=== PATIENT | male | born 1935 | race Caucasian/White ===

== ENCOUNTER 2016-04-07 11:01 | Emergency (ER) | payer MEDICARE ==
[2016-04-07 11:10] VITALS: BMI 27.2
[2016-04-07 11:11] VITALS: TEMP 98.1
[2016-04-07 11:21] LABS: AUTOMATED BASOPHIL 0.6 % (0-2); AUTOMATED MONOCYTE 8.1 % (3-10); AUTOMATED NEUTROPHIL 69.3 % (45-76); MPV 8.2 fL (7.4-10.4)
[2016-04-07 11:38] LABS: BLOOD UREA NITROGEN 16 MG/DL (9-20); CALCIUM 8.7 MG/DL (8.4-10.2); CALCULATED OSMOLALITY 267 MOs/Kg (270-290); CHLORIDE 105 mEq/L (98-107); GLUCOSE 91 MG/DL (70-99); SODIUM LEVEL 138 mEq/L (137-146); TOTAL PROTEIN 6.6 G/DL (6.3-8.2)
[2016-04-07 14:08] LABS: LEUKOCYTES/URINE NEG (NEGATIVE); NITRITE/URINE NEG (NEGATIVE); RBC/URINE 0-2 (0-2); URINE OCCULT BLOOD NEG (NEG/TRACE)
[2016-04-07] MEDS ORDERED: NS 1,000 ML IV ONE ×2 (15:03→15:18)
--- NOTE | 2016-04-07 15:08 | EDPRACDOC ---
- General Information Chief Complaint: Generalized Weakness Stated Complaint: GENERAL WEAKNESS Time Seen by Provider: 04/07/16 11:29 Information Source: Patient Mode Of Arrival: Ambulance Home Medications: Home Medications Aspirin [Aspirin EC] 81 mg PO QAM 12/21/13 Carbidopa/Levodopa [Carbidopa-Levodopa 25-100 Tab] 1 tab PO .DAILY@1530 Carbidopa/Levodopa [Carbidopa-Levodopa 25-100 Tab] 2 tab PO .TID W/MEALS Flecainide Acetate [Tambocor] 50 mg PO .NOON & QHS 12/21/13 Galantamine HBr [Razadyne ER] 24 mg PO QAM 12/21/13 Multivitamin [Daily Vitamin] 1 tab PO DAILY 12/21/13 Melatonin/Pyridoxine [Melatonin 3 mg Tablet] 3 mg PO .SUPPER & 2000 10/27/15 Memantine HCl [Namenda] 10 mg PO BID 10/27/15 Mirtazapine 7.5 mg PO Q48H 10/27/15 Amoxicillin/Clavulanate Potas. [Augmentin] 875 mg PO Q12H 04/07/16 Cholecalciferol (Vitamin D3) [Vitamin D3] 1,000 unit PO .DAILY@NOON 04/07/16 Cyanocobalamin (Vitamin B-12) [B-12] 500 mcg PO QAM 04/07/16 Fludrocortisone Acetate [Florinef] 0.1 mg PO QAM 04/07/16 Kefir Probiotic Drink 237 ml PO QA 04/07/16 Probiotic Blend [Erinn Q] 1 tab PO HS 04/07/16 Allergies/Adverse Reactions: Allergies Allergy/AdvReac Type Severity Reaction Status Date / Time No Known Allergies Allergy Verified 04/07/16 11:37 - History of Present Illness Onset: WEAKS Exact Onset of Symptoms: Unknown HPI: INSIDIOUS ONSET OF WEAKNESS AND MUSCLE INCOORDINATION (HISTORY OF PARKINSONISM). THIS HAS PROGRESSIVELY BEEN MORE SEVERE OVER THE PAST 2-3 DAYS. PATIENT HAS BEEN USING THE BEDSIDE COMMODE FOR THE PAST WEEKS, BUT NOW IS HAVING TROUBLE GETTING UP TO USE THE BEDSIDE COMMODE WITHOUT SIGNIFICANT ASSISTANCE FROM HIS . PATIENT HAS HAD A SERIES OF MINOR MEDICAL PROBLEMS OVER THE PAST MONTHS. INCLUDING INCREASE LOWER BACK PAIN STATUS POST SPINAL INJECTION 3 WEEKS AGO, RECENT UPPER RESPIRATORY INFECTION TREATED WITH AUGMENTIN THIS STARTED APPROXIMATELY 1 WEEK AGO. THIS HAS PROGRESSED TO A NONPRODUCTIVE COUGH. HIS ALSO HAD A HEADACHE FOR APPROXIMATELY 2-3 DAYS RATE IS 6/10 GENERALIZED SLOW ONSET NO ALLEVIATING OR AGGRAVATING FACTORS THIS SOMEWHAT IMPROVED NOW.. HE HAS HAD A DECREASE IN P.O. INTAKE FOR THE PAST SEVERAL DAYS WELL. REPORTS THAT HE CM LINES ON THE WALL, AND THIS HAS BEEN ASSOCIATED WITH DEHYDRATION IN THE PAST. ED Past Medical History - Patient Medical History Neurological History: Reports: Dementia (Mild cognitive impairment for which he takes Namenda), Parkinson's Cardiac History: Reports: Hypertension, Cardiac Catheterization, Pacemaker () Respiratory History: Reports: Pulmonary Embolism (2006 pulmonary embolus) Musculoskeletal History: Reports: Arthritis Psychological History: Denies: Depression, Substance Use Disorder Systemic History: Reports: Cancer (skin) Surgical History: Reports: Cardiac Catheterization - Family Medical History Reports: Cancer, Cardiac Disorders. Denies: Hypertension, Diabetes, Stroke - Social Medical History Smoking Status: Never smoker Social History: Denies: Substance Use Disorder ETOH: None Substance Abuse: None Lives With: Spouse Lives In: Home EDM Review of Systems - Review of Systems ROS Negative Except as Marked: Yes All systems reviewed and were negative except as marked - Physical Exam Constitutional: Alert (Awake), No apparent distress Oriented to: Time, Person, Place Last recorded Vital Signs: Last Vital Signs Temp 98.1 F 04/07/16 11:04 Pulse 61 04/07/16 14:59 Resp 18 04/07/16 14:59 BP 127/79 04/07/16 14:59 Pulse Ox 94 04/07/16 14:59 Oxygen Pulse Oxygen Saturation 94 O2 Device Room Air Oxygen Flow Rate Fraction of Inspired Oxygen ( FIO2) - HEENT Head: Normal ( normocephalic) Eye Exam: Normal (PERRL, EOMI, Sclera white) Oropharynx: Normal (Pharynx:Moist without exudate,Gums-no swelling) Nose: No Symptoms Reported (septum midline) Neck: Normal (FROM, trachea at midline). negative: Edema, Limited ROM, Lymphadenopathy, Meningeal Signs - Respiratory/Cardiovascular Respiratory: Normal - CTA (BBS clear to auscultation without adventitious sounds ). negative: Accessory Muscle Use, Tachypnea Cardiovascular: Normal (RRR without murmur, gallop or rub) - GI Auscultation: Normal (NABS) Palpation: Normal (Soft,No rebound or guarding, non distended) Tenderness: Non tender Lakhani's Sign: Negative - Musculoskeletal Back: Normal (Non-Tender) Extremities: Normal (Normal tone, Pulses 2+ No cyanosis or edema, FROM) - Integumentary Skin: Normal, Warm, Dry Lymphatics: Normal (no adenopathy) - Neurologic Memory Impaired: Normal Motor Function: Normal (Normal tone, Pulses 2+ No cyanosis or edema, FROM) Cranial Nerve: Normal (CN II-X11 intact sensation, strength 5/5) Cerebellar: Other (GROSSLY INTACT) Mood Description: Normal, Appropriate Thought: Coherent Perception: Normal NIH Stroke Scale Re-evaluation 1 Level of Consciousness: Alert LOC- Question: Answers Both Correctly LOC Commands: Both Task Correctly Best Gaze: Normal Visual: No Visual Loss Facial Palsy: Normal Movement Motor Arm LEFT: No Drift Motor Arm RIGHT: No Drift Motor Leg LEFT: No Drift Motor Leg RIGHT: No Drift Limb Ataxia: Absent Sensory: Normal Best Language: No Aphasia Dysarthria: Normal Extinction and Inattention: No Abnormality (Neglect) Score: 0out of42 - Results 04/07/16 11:08 04/07/16 11:08 WBC 4.8 xk/uL (3.8-10.8) 04/07/16 11:08 RBC 4.20 xM/uL (4.70-6.10) L 04/07/16 11:08 Hgb 12.6 g/dL (14.0-18.0) L 04/07/16 11:08 Hct 37.0 % (42-52) L 04/07/16 11:08 MCV 88 fL (80-94) 04/07/16 11:08 MCH 29.9 pg (27-32) 04/07/16 11:08 MCHC 34.0 g/dl (33-36) 04/07/16 11:08 RDW 13.6 % (11.5-14.5) 04/07/16 11:08 Plt Count 149 xk/uL (130-400) 04/07/16 11:08 MPV 8.2 fL (7.4-10.4) 04/07/16 11:08 Neut % (Auto) 69.3 % (45-76) 04/07/16 11:08 Lymph % (Auto) 20.0 % (17-44) 04/07/16 11:08 Duchesne % (Auto) 8.1 % (3-10) 04/07/16 11:08 Eos % (Auto) 2.0 % (0-5) 04/07/16 11:08 Baso % (Auto) 0.6 % (0-2) 04/07/16 11:08 Absolute Neuts (auto) 3.31 xk/uL (1.7-8.2) 04/07/16 11:08 Absolute Lymphs (auto) 0.96 xk/uL (0.65-4.75) 04/07/16 11:08 Sodium 138 mEq/L (137-146) 04/07/16 11:08 Potassium 4.4 mEq/L (3.5-5.1) 04/07/16 11:08 Chloride 105 mEq/L (98-107) 04/07/16 11:08 Carbon Dioxide 25 mMOL/L (22-33) 04/07/16 11:08 Anion Gap 12 mEq/L (8-16) 04/07/16 11:08 BUN 16 MG/DL (9-20) 04/07/16 11:08 Creatinine 0.90 MG/DL (0.66-1.25) 04/07/16 11:08 Estimated GFR (MDRD) > 60 mL/min (>=60) 04/07/16 11:08 Glucose 91 MG/DL (70-99) 04/07/16 11:08 Calculated Osmolality 267 MOs/Kg (270-290) L 04/07/16 11:08 Calcium 8.7 MG/DL (8.4-10.2) 04/07/16 11:08 Corrected Calcium 9.0 MG/DL (8.4-10.2) 04/07/16 11:08 Total Bilirubin 0.8 MG/DL (0.2-1.3) 04/07/16 11:08 AST 63 IU/L (17-59) H 04/07/16 11:08 ALT 37 IU/L (21-72) 04/07/16 11:08 Alkaline Phosphatase 67 IU/L (50-160) 04/07/16 11:08 Troponin I < 0.01 ng/mL (<.04) 04/07/16 11:08 Total Protein 6.6 G/DL (6.3-8.2) 04/07/16 11:08 Albumin 3.7 G/DL (3.5-5.0) 04/07/16 11:08 Urine Color Yellow 04/07/16 13:54 Urine Clarity Clear 04/07/16 13:54 Urine pH 6.0 (5.0-8.0) 04/07/16 13:54 Ur Specific Sutton 1.035 (1.003-1.035) 04/07/16 13:54 Urine Protein Neg (NEG/TRACE) 04/07/16 13:54 Urine Glucose (UA) Neg (NEGATIVE) 04/07/16 13:54 Urine Ketones Neg (NEGATIVE) 04/07/16 13:54 Urine Occult Blood Neg (NEG/TRACE) 04/07/16 13:54 Urine Nitrite Neg (NEGATIVE) 04/07/16 13:54 Urine Bilirubin Neg (NEGATIVE) 04/07/16 13:54 Urine Urobilinogen 0.2 MG/DL (0-1) 04/07/16 13:54 Ur Leukocyte Esterase Neg (NEGATIVE) 04/07/16 13:54 Urine RBC 0-2 (0-2) 04/07/16 13:54 Urine WBC 2-5 (0-2) H 04/07/16 13:54 Ur Epithelial Cells Occ 04/07/16 13:54 Urine Mucus Occ (NEG/OCC) 04/07/16 13:54 Lab Results 04/07/16 04/07/16 04/07/16 13:54 11:08 11:08 WBC 4.8 RBC 4.20 L Hgb 12.6 L Hct 37.0 L MCV 88 MCH 29.9 MCHC 34.0 RDW 13.6 Plt Count 149 MPV 8.2 Neut % (Auto) 69.3 Lymph % (Auto) 20.0 Duchesne % (Auto) 8.1 Eos % (Auto) 2.0 Baso % (Auto) 0.6 Absolute Neuts (auto) 3.31 Absolute Lymphs (auto) 0.96 Sodium Potassium Chloride Carbon Dioxide Anion Gap BUN Creatinine Estimated GFR (MDRD) Glucose Calculated Osmolality Calcium Corrected Calcium Total Bilirubin AST ALT Alkaline Phosphatase Troponin I < 0.01 Total Protein Albumin Urine Color Yellow Urine Clarity Clear Urine pH 6.0 Ur Specific Sutton 1.035 Urine Protein Neg Urine Glucose (UA) Neg Urine Ketones Neg Urine Occult Blood Neg Urine Nitrite Neg Urine Bilirubin Neg Urine Urobilinogen 0.2 Ur Leukocyte Esterase Neg Urine RBC 0-2 Urine WBC 2-5 H Ur Epithelial Cells Occ Urine Mucus Occ 04/07/16 11:08 WBC RBC Hgb Hct MCV MCH MCHC RDW Plt Count MPV Neut % (Auto) Lymph % (Auto) Duchesne % (Auto) Eos % (Auto) Baso % (Auto) Absolute Neuts (auto) Absolute Lymphs (auto) Sodium 138 Potassium 4.4 Chloride 105 Carbon Dioxide 25 Anion Gap 12 BUN 16 Creatinine 0.90 Estimated GFR (MDRD) > 60 Glucose 91 Calculated Osmolality 267 L Calcium 8.7 Corrected Calcium 9.0 Total Bilirubin 0.8 AST 63 H ALT 37 Alkaline Phosphatase 67 Troponin I Total Protein 6.6 Albumin 3.7 Urine Color Urine Clarity Urine pH Ur Specific Sutton Urine Protein Urine Glucose (UA) Urine Ketones Urine Occult Blood Urine Nitrite Urine Bilirubin Urine Urobilinogen Ur Leukocyte Esterase Urine RBC Urine WBC Ur Epithelial Cells Urine Mucus - EKG EKG #1 EKG Time: 11:10 -: Yes EKG interpreted by me Rate: bpm: 71 Roberta: Normal Rhythm: NSR, Paced Block: None Hypertrophy: None ST: Nonsp Comparison: 11/01/15 (NO SIGNIF CHANGE) EKG #2 EKG Time: 16:12 -: Yes EKG interpreted by me Rate: bpm: 79 Roberta: Normal Rhythm: Paced Block: None Hypertrophy: None ST: Nonsp - Diagnostic Imaging Head Image interpreted by: , Radiologist Patient Name: GALI HANNA III Courtesy Copy to: Diagnostic Imaging Report [facility] [address] [place] [address] [phone] Diagnostic Imaging Services Courtesy Copy to: Diagnostic Imaging Report Patient Name: GALI HANNA III LOC: ED : 1935 AGE: 81 Order Date:04/07/16 Date of Service: Report # [id number] Ord Physician: Tara Awad MD Exam # [id number] Emergency Physician: Tara Awad MD Exam(s): [id number] CT/CT HEAD W/O CM CLINICAL DATA: Weakness and decreased ability to walk for the last 2 days. EXAM: CT HEAD WITHOUT CONTRAST TECHNIQUE: Contiguous axial images were obtained from the base of the skull through the vertex without intravenous contrast. COMPARISON: 11/18/2010 FINDINGS: Ventricles are normal in size, for this patient's age, and normal in configuration. There are no parenchymal masses or mass effect. There is no evidence of a cortical infarct. There are no extra-axial masses or abnormal fluid collections. There is no intracranial hemorrhage. Mild mucosal thickening lines the ethmoid air cells. Remaining visualized sinuses and the mastoid air cells are clear. IMPRESSION: 1. No acute intracranial abnormalities. 2. Mild ethmoid sinus mucosal thickening. Electronically Signed By: Raymond Pena M.D. On: 04/07/2016 15:46 Electronically Signed By: Raymond Pena MD Electronically Signed Date/Time: 549 Dictate Date/Time: 04/07/16 1545 Technologist: eK,Radiology Transcribed By: Digna Transcribed Date/Time: 04/07/16 1546 Chest Image interpreted by: Radiologist Patient Name: PRINCE DE DIOS LOC: ED : 11/03/1968 AGE: 47 Order Date:04/07/16 Date of Service: Report # [id number] Ord Physician: Trace Rocha Exam # [id number] Emergency Physician: Provider,ER Exam(s): [id number] CT/CT ABD-PELV W/IV CM CLINICAL DATA: Sharp stabbing left lower quadrant pain, radiating to the back, beginning today. EXAM: CT ABDOMEN AND PELVIS WITH CONTRAST TECHNIQUE: Multidetector CT imaging of the abdomen and pelvis was performed using the standard protocol following bolus administration of intravenous contrast. CONTRAST: 100 mL of Isovue 370 intravenous contrast COMPARISON: CT, 03/20/2008 FINDINGS: Lung bases: Minimal dependent subsegmental atelectasis. Otherwise clear. Heart size. Liver, spleen, gallbladder, pancreas, adrenal glands: Unremarkable. Kidneys, ureters, bladder: Sub cm low-density lesion in the midpole the right kidney consistent with a cyst. No other renal masses or lesions. No stones. No hydronephrosis. Normal ureters. Bladder unremarkable. Uterus and adnexa: Uterus surgically absent. No adnexal/ pelvic masses. Lymph nodes: No adenopathy. Ascites: None. Gastrointestinal: Stomach, small bowel and colon are unremarkable. Appendix not visualized. No evidence of appendicitis. Musculoskeletal: Degenerative changes noted in the lower lumbar spine. No osteoblastic or osteolytic lesions. IMPRESSION: 1. No acute findings. No findings to explain this patient's symptoms. 2. Status post hysterectomy. 3. Sub cm probable left renal cyst. Degenerative changes of the visualized spine. Electronically Signed By: Raymond Pena M.D. On: 04/07/2016 13:48 Electronically Signed By: Raymond Pena MD Electronically Signed Date/Time: 351 Dictate Date/Time: 04/07/16 1342 Technologist: Ke,Radiology Transcribed By: Digna Transcribed Date/Time: 04/07/16 1348 - Additional Information GRADUAL PROGRESSION OF WEAKNESS/FAILURE TO THRIVE OVER THE PAST SEVERAL WEEKS. DESPITE MULTIPLE HOME MODALITIES SUCH BEDSIDE COMMODE THE IS HAVING GREAT DIFFICULTY ASSISTING THE PATIENT HOME THE INTEREST ENQUIRING ABOUT SHORT- TERM REHAB PLACEMENT FOR PHYSICAL THERAPY. I WILL ASK CASE MANAGEMENT EVALUATE THE PATIENT FOR OPTIONS. NO MEDICAL CAUSE FOUND. PHARMACIST HAS REVIEWED MED LIST FOR DRUG-DRUG INTERACTIONS: GALANTIN AND FLUORONEF INTERTACTION CAN MAY INCREASE GALANTIN INTERACTION. I DISCUSSED THIS WITH , SHE DOES NOT WANT TO CHANGE DOSES NOW, WILL D/W PT [facility] AT [facility]. - Departure Disposition: [facility] Facility Condition: Stable Final Diagnosis: Attacks of weakness, Failure to thrive in adult, Ataxia Instructions: Weakness (General) Education/Counseling Given To: Patient, Family Member Education/Counseling Given Regarding: Diagnosis, Treatment, Prognosis Referrals: Yasmany Heredia MD [Primary Care Provider] - One Week
--- NOTE | 2016-04-07 15:49 | DIRPT ---
CLINICAL DATA: Weakness and decreased ability to walk for the last 2 days. EXAM: CT HEAD WITHOUT CONTRAST TECHNIQUE: Contiguous axial images were obtained from the base of the skull through the vertex without intravenous contrast. COMPARISON: 11/18/2010 FINDINGS: Ventricles are normal in size, for this patient's age, and normal in configuration. There are no parenchymal masses or mass effect. There is no evidence of a cortical infarct. There are no extra-axial masses or abnormal fluid collections. There is no intracranial hemorrhage. Mild mucosal thickening lines the ethmoid air cells. Remaining visualized sinuses and the mastoid air cells are clear. IMPRESSION: 1. No acute intracranial abnormalities. 2. Mild ethmoid sinus mucosal thickening. Electronically Signed By: Raymond Pena M.D. On: 04/07/2016 15:46
[2016-04-07 16:02] VITALS: PULSE 60
--- NOTE | 2016-04-07 16:04 | DIRPT ---
CLINICAL DATA: Shortness of Breath EXAM: CHEST 2 VIEW COMPARISON: December 21, 2013 ; June 29, 2015 FINDINGS: There is no edema or consolidation. Heart size and pulmonary vascularity are normal. No adenopathy. Pacemaker leads are attached to the right atrium and right ventricle. Prominence along the anterior left first rib is stable and felt to be due to exostosis change in this area. There is mild degenerative change in the thoracic spine. IMPRESSION: No edema or consolidation. Electronically Signed By: Maxx Roth III, M.D. On: 04/07/2016 16:01
[2016-04-07] MEDS ORDERED: ONDANSETRON HCL 4 MG ODT TAB PO ONE (16:10)
[2016-04-07 16:18] VITALS: BP 160/97
== END 2016-04-07 16:55 ==
LOC: ED 11:01
DX: R53.1 Weakness (principal); R62.7 Adult failure to thrive; R27.0 Ataxia, unspecified
CPT/HCPCS: 36415; 70450; 71020; 80053; 81001; 84443; 84484; 85025; 93005; 96360; 96361; 99285; A9270; J3490